=== PATIENT | female | born 1960 | race Caucasian/White ===

== ENCOUNTER 2016-12-14 17:15 | Inpatient (IN) | payer OTHER ==
[~2016-12-14 17:15] MED LIST: ASPIRIN EC81 MG PO; BISCOLAX10 MG PR; BUTRANS1 EAC3 TD; CARAFATE 1 GM TA1 GM PO; CATAPRES 0.1MG0.1 MG PO; CLARITIN10 MG PO; COREG 12.5MG12.5 MG PO; CYMBALTA60 MG PO; DESYREL 50 MG T50 MG PO; DIVALPROEX SOD250 MG PO; IPRAT-ALBUT 0.5-3 ML INH; KLONOPIN TAB 00.5 MG PO; MAGIC BUTT PASTE; MORPHINE SULFAT30 M5 PO; MULTI-DAY VITA1 EACH PO; NORCO 10-325 T1 EACH PO; OMEPRAZOLE40 MG PO; QUETIAPINE FUMA50 MG PO; ROXANOL SOLN20 MG/M1 PO; SEROQUEL25 MG PO; TYLENOL 500 MG500 MG PO; VITAMIN D50000 UNIT PO
[2016-12-14 17:53] LABS: HEMOGLOBIN 10.6 gm/dl (12.3-15.3); WHITE BLOOD COUNT 5.6 K/UL (4.5-11.0)
[2016-12-14 18:00] LABS: RED BLOOD COUNT 4.35 M/UL (4.00-5.10)
[2016-12-15] MEDS ORDERED: LORTAB 5-325 M1 EACH PO (00:17)
[2016-12-15] MEDS ORDERED: MACROBID 100 M100 MG PO (00:26)
[2016-12-15] MEDS ORDERED: XARELTO10 MG PO (00:27)
[2016-12-15] MEDS ORDERED: COLACE 100MG C100 MG PO (00:28)
[2016-12-15] MEDS ORDERED: VITAMIN C250 MG PO (00:28)
[2016-12-15] MEDS ORDERED: MIRALAX17 GM PO (00:28)
[2016-12-15] MEDS ORDERED: INVANZ1 GM IV (00:30)
[2016-12-15] MEDS ORDERED: FERROUS SULFAT324 MG PO (00:30)
[2016-12-15] MEDS ORDERED: VANCOCIN 125MG/2.5ML IV (00:31)
[2016-12-15 07:11] LABS: HEMOGLOBIN 9.4 gm/dl (12.3-15.3)
[2016-12-15 07:16] LABS: RED BLOOD COUNT 3.85 M/UL (4.00-5.10)
[2016-12-16 05:50] LABS: HEMOGLOBIN 8.6 gm/dl (12.3-15.3); RED BLOOD COUNT 3.49 M/UL (4.00-5.10); WHITE BLOOD COUNT 7.5 K/UL (4.5-11.0)
[2016-12-17 04:23] LABS: HEMOGLOBIN 8.5 gm/dl (12.3-15.3); RED BLOOD COUNT 3.59 M/UL (4.00-5.10)
[2016-12-17 04:24] LABS: WHITE BLOOD COUNT 9.8 K/UL (4.5-11.0)
[2016-12-18 04:21] LABS: HEMOGLOBIN 8.5 gm/dl (12.3-15.3); RED BLOOD COUNT 3.58 M/UL (4.00-5.10); WHITE BLOOD COUNT 9.6 K/UL (4.5-11.0)
[2016-12-18] MEDS ORDERED: LORTAB 5-325 M1 EACH PO (12:01)
[2016-12-18] MEDS ORDERED: VENTOLIN/PROVE0.5 ML INH (12:20)
[2016-12-18] MEDS ORDERED: ATROVENT INH S2.5 ML INH (12:22)
== END 2016-12-18 14:45 | DRG 193 ==
LOC: ER1 17:15 → ZEROF 21:05 → CCU 12-15 00:14
PROVIDERS: Emergency Medicine; Family Medicine; Internal Medicine; ADMIT Family Medicine
PROC: 5A09357 Assistance with Respiratory Ventilation, Less than 24 Consecutive Hours, Continuous Positive Airway Pressure (ICD-10-PCS; principal; 2016-12-14)
DX: J18.9 Pneumonia, unspecified organism (principal); J96.22 Acute and chronic respiratory failure with hypercapnia; J96.21 Acute and chronic respiratory failure with hypoxia; R57.1 Hypovolemic shock; C78.02 Secondary malignant neoplasm of left lung; C78.01 Secondary malignant neoplasm of right lung; J90 Pleural effusion, not elsewhere classified; C77.3 Secondary and unspecified malignant neoplasm of axilla and upper limb lymph nodes; C77.1 Secondary and unspecified malignant neoplasm of intrathoracic lymph nodes; C79.81 Secondary malignant neoplasm of breast; F33.3 Major depressive disorder, recurrent, severe with psychotic symptoms; E66.2 Morbid (severe) obesity with alveolar hypoventilation; C43.61 Malignant melanoma of right upper limb, including shoulder; E86.0 Dehydration; Q15.0 Congenital glaucoma; I10 Essential (primary) hypertension; J45.909 Unspecified asthma, uncomplicated; D50.9 Iron deficiency anemia, unspecified; D63.8 Anemia in other chronic diseases classified elsewhere; K21.9 Gastro-esophageal reflux disease without esophagitis; K57.90 Diverticulosis of intestine, part unspecified, without perforation or abscess without bleeding; M19.90 Unspecified osteoarthritis, unspecified site; E55.9 Vitamin D deficiency, unspecified; F03.90 Unspecified dementia, unspecified severity, without behavioral disturbance, psychotic disturbance, mood disturbance, and anxiety; G47.00 Insomnia, unspecified; H91.90 Unspecified hearing loss, unspecified ear; F41.9 Anxiety disorder, unspecified; Z66 Do not resuscitate; Z79.01 Long term (current) use of anticoagulants; Z79.1 Long term (current) use of non-steroidal anti-inflammatories (NSAID); Z79.899 Other long term (current) drug therapy; Z89.011 Acquired absence of right thumb; Z96.642 Presence of left artificial hip joint; Z90.710 Acquired absence of both cervix and uterus; Z90.49 Acquired absence of other specified parts of digestive tract; Z98.890 Other specified postprocedural states; Z68.28 Body mass index [BMI] 28.0-28.9, adult
CPT/HCPCS: ECHO; 36415; 36600; 70450; 71010; 76641-RT; 80048; 80053; 81001; 82140; 82550; 82553; 82803; 83605; 83874; 83880; 84484; 85025; 85027; 85379; 85610; 85730; 87040; 87086; 93005; 93306; 94640; 94660; 94664; 96365; 96375; 99285; J1335; J1956; J2060; J2270; J7040; J7050; Q9963